=== PATIENT | female | born 1930 ===

== ENCOUNTER 2020-09-15 08:25 | Emergency (ER) | payer OTHER ==
[~2020-09-15] VITALS: Ht 147.3 cm; Wt 45.4 kg
[~2020-09-15 08:25] MED LIST: METOPROLOL SUCC25 MG
[2020-09-15] MEDS ORDERED: ARICEPT5 MG PO (08:51)
[2020-09-15] MEDS ORDERED: ELIQUIS2.5 MG PO (08:51)
[2020-09-15] MEDS ORDERED: ZOLOFT50 MG PO (08:51)
[2020-09-15] MEDS ORDERED: VALACYCLOVIR1000 MG PO (14:56)
[2020-09-15] MEDS ORDERED: PEPCID AC20 MG PO (14:56)
[2020-09-15] MEDS ORDERED: APETIGEN-PLUS1 EACH PO (14:56)
[2020-09-15] MEDS ORDERED: GABAPENTIN100 M2 PO (14:56)
== END 2020-09-15 15:26 | disposition home or self-care (01) ==
LOC: ER 08:25
DX: N39.0 Urinary tract infection, site not specified (principal); B96.29 Other Escherichia coli [E. coli] as the cause of diseases classified elsewhere; R31.0 Gross hematuria; B02.9 Zoster without complications; Z03.818 Encounter for observation for suspected exposure to other biological agents ruled out

== ENCOUNTER 2020-09-19 20:30 | Emergency (ER) | payer OTHER ==
[~2020-09-19] VITALS: Ht 149.9 cm; Wt 49.9 kg
[~2020-09-19 20:30] MED LIST changes: +APETIGEN-PLUS1 EACH PO; +ARICEPT5 MG PO; +ELIQUIS2.5 MG PO; +GABAPENTIN100 M2 PO; +PEPCID AC20 MG PO; +VALACYCLOVIR1000 MG PO; +ZOLOFT50 MG PO
[2020-09-19] MEDS ORDERED: ATIVAN1 M1 PO (21:02)
== END 2020-09-19 21:18 | disposition home or self-care (01) ==
LOC: ER 20:30
DX: G47.09 Other insomnia (principal); F41.8 Other specified anxiety disorders; G30.8 Other Alzheimer's disease; F02.80 Dementia in other diseases classified elsewhere, unspecified severity, without behavioral disturbance, psychotic disturbance, mood disturbance, and anxiety